=== PATIENT | female | born 1990 | race Hispanic/Latino ===

== ENCOUNTER 2023-12-29 13:59 | Emergency (ER) | payer OTHER, SELFPAY ==
[2023-12-29 14:02] VITALS: BP 119/78
--- NOTE | 2023-12-29 15:05 | ED.GENMED ---
History of Present Illness
General
Chief Complaint: Dizziness
Source: patient
Exam Limitations: none
Time Seen by Provider: 12/29/23 14:53
Travel History
Have you had any contact with someone who has COVID-19?: No
Do you have any symptoms of coronavirus? Fever > 100 degrees, chills, cough, shortness of breath, sore throat, loss of taste or smell, muscle aches, or headache?: No
History of Present Illness
History of Present Illness:
See MDM
Past History
Past History
ED Past Medical History: Psychiatric (Anxiety)
ED Past Surgical History: None
Social History
Tobacco: Non-smoker
Drug: None
Phy Exam
Physical Exam
Physical Exam:
See MDM
Course
Orders/Labs/Results
Orders:
Orders
12/29/23 15:04
0.9% Sodium Chloride 1000 ml [Nss] 1,000 ml IV BOLUS
Ondansetron Injectable [Zofran] 4 mg IV NOW STA
12/29/23 15:05
Test Result ONCE
12/29/23 15:23
COVID-19 Antigen Urgent
Source: Nasal Swab
Complete Blood Count/With Diff Urgent
Comprehensive Metabolic Panel Urgent
HCG, Serum Qualitative Screen Urgent
Influenza A+B Rapid Molecular Urgent
ANTHONY Source: Nasal Swab
Specimen Description:
Abnormal Lab Results
12/29/23
15:23
Absolute Neuts (auto) 8.0 H 10^3/uL
(1.4-6.5)
Absolute Monos (auto) 0.7 H 10^3/uL
(0.1-0.6)
Neutrophils % 75.8 H %
(42.2-75.2)
Lymphocytes % 15.5 L %
(20.5-51.1)
12/29/23 15:23
12/29/23 15:23
Vital Signs
Initial and Last Documented VS:
Initial Vital Signs
Temp Pulse Resp BP Pulse Ox
97.8 F 71 18 119/78 100
12/29/23 14:02 12/29/23 14:02 12/29/23 14:02 12/29/23 14:02 12/29/23 14:02
Last Documented Vital Signs
Temp Pulse Resp BP Pulse Ox
97.8 F 71 18 119/78 100
12/29/23 14:02 12/29/23 14:02 12/29/23 14:02 12/29/23 14:02 12/29/23 14:02
MDM/Problems Addressed
Differential Diagnosis Includes:
HPI and MDM Narrative:
33-year-old female presenting with dizziness described as lightheaded. This is worse when she sits up quickly. Patient is unsure if it is related but she has noted diarrhea recently. She is unsure about any sick contacts. She has a history of
vertigo but states this feels different. She took Zofran at home with minimal relief
On exam, she is clinically dehydrated. She is clinically orthostatic. Negative Cassi-Hallpike sign. Dry mucous membranes. Will give IV fluids, obtain basic blood work and check for viral testing and
Physical exam
General: Well appearing and non-toxic
HEENT: protecting airway. Dry mucous membranes. TMs
Neck: appears supple
CV: No evidence of cyanosis. Regular rate and rhythm
Resp: No accessory muscle use
Abd: Non-distended
Extremities: No deformities
Neuro: alert
Psych: Normal affect
Skin: Intact
Problems Addressed including Acute and Chronic Conditions affecting care:
1. Dizziness
Acuity: acute
Prognosis: stable
Details: Likely in the setting of orthostasis and dehydration. Patient given IV fluids
Updates
Blood work without clinical significance. Patient feeling better after fluids. Discussed return precautions
Differential Diagnosis (but not limited to): , viral syndrome, dehydration
Testing considered: EKG
Drug therapy (if applicable): OTC meds, please see d/c instruction regarding Rx drugs
Amount and/or Complexity of Data Reviewed
Clinical info obtained from: Patient
External data reviewed: N/A
Labs I independently reviewed (but not limited to): Electrolytes within normal limits
Radiology: N/A
Pulse Ox: not hypoxic
EKG independently reviewed: N/A
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
Critical Care: N/A
Risk of Complication:
Social Determinants of health: Good social support
Discussed with other providers: N/A
Escalation of Care includes Admit/Obs: After being observed in the Emergency Department, pt stable for discharge.
Occasional wrong word or 'sound a like' substitutions may have occurred due to the inherent limitations of voice recognition software. Read the chart carefully and recognize, using context, where substitutions have occurred.
*Critical Care Note
Total Time (30-74mins, 75-104mins- exclusive of procedures): Not Applicable
ED Attending Note
-
Portions of this chart may have been created with voice recognition software.� Occasional wrong word or��sound alike� substitutions may have occurred due to the inherent limitations of voice recognition software.
Discharge Plan
Departure
Patient Disposition: Home (Routine Discharge)
Date of Disposition: 12/29/23
Time of Disposition: 16:12
Patient with high blood pressure during this ER visit?: No
Discharge Problem:
Acute dehydration
Instructions: Dehydration, Adult (DC)
Referrals:
Fani Hodgson DO [Family Provider] -
Activity Restrictions/Additional Instructions:
Please return for any worsening symptoms.
You may return at any time if you have further concerns.
Please follow up with your doctor at the first available appointment, preferably this week.
Thank you for choosing [facility].
[2023-12-29] MEDS: ZOFRAN 4 MG IV (15:24)
[2023-12-29] MEDS: NSS 1000 IV (15:35)
[2023-12-29 15:45] LABS: % Basophils 0.5 % (0-2); % Eosinophils 1.3 % (0-6); % Immature Granulocytes 0.4 % (0-0.5); % Lymphocytes 15.5 % (20.5-51.1); % Monocytes 6.5 % (1.7-9.3); % Neutrophils 75.8 % (42.2-75.2); Absolute Basophils 0.1 10^3/uL (0-0.2); Absolute Eosinophils 0.1 10^3/uL (0-0.7); Absolute Lymphocytes 1.6 10^3/uL (1.2-3.4); Absolute Monocytes 0.7 10^3/uL (0.1-0.6); Hematocrit 38.9 % (37.0-47.0); Hemoglobin 13.4 g/dL (12.0-16.0); Mean Corp Hgb Conc. 34.4 g/dL (33.0-37.0); Mean Corpuscular Hgb 30.2 pg (27.0-31.0); Mean Corpuscular Volume 87.6 fL (81.0-99.0); Mean Platelet Volume 9.7 fL (7.4-10.4); Nucleated Red Blood Cells % 0 %; Platelet Count 299 10^3/uL (130-400); Red Blood Cell Count 4.44 10^6/uL (4.20-5.40); Red Cell Dist. Width 12.5 % (11.5-14.5); White Blood Cell Count 10.6 10^3/uL (4.8-10.8)
[2023-12-29 16:01] LABS: COVID-19 Antigen Negative (Negative)
[2023-12-29 16:02] LABS: HCG, Serum Qualitative Screen Negative
[2023-12-29 16:06] LABS: ALT (SGPT) 15 U/L (0-35); AST (SGOT) 21 U/L (14-36); Albumin 4.3 g/dl (3.5-5.0); Alkaline Phosphatase 55 U/L (38-126); Blood Urea Nitrogen 13 mg/dl (7-17); Calcium 9.4 mg/dl (8.4-10.2); Carbon Dioxide 27 mmol/L (22-30); Chloride 105 mmol/L (98-107); Glucose 73 mg/dl (70-99); Potassium 4.3 mmol/L (3.5-5.1); Sodium 137 mmol/L (135-145); Total Bilirubin 0.3 mg/dl (0.2-1.3); Total Protein 7.4 g/dl (6.3-8.2); eGFR > 60.00
== END 2023-12-29 17:08 | disposition home or self-care (01) ==
LOC: EMR 13:59
PROVIDERS: EMERGENCY PHYSICIAN Student in an Organized Health Care Education/Training Program; FAMILY PHYSICIAN Family Medicine
DX: E86.0 Dehydration (principal)
CPT/HCPCS: 99284; 96374; 96361; 80053; 84703; 85025; 87502; 87811